=== PATIENT | female | born 1955 | race Caucasian/White ===

== ENCOUNTER 2019-10-17 14:58 | Inpatient (IN) | payer MEDICARE ==
[~2019-10-17] VITALS: Ht 167.6 cm; Wt 63.7 kg
[2019-10-17] MEDS ORDERED: normal saline 1000ML IV soln IVB ONE (15:25)
[2019-10-17] MEDS ORDERED: ondansetron/PF 4mg/2ml inj IV ONE ×2 (15:25→16:45)
[2019-10-17] MEDS ORDERED: ketorolac trometh. 30mg/ml inj. IV ONE (15:25)
[2019-10-17 15:31] LABS: BASOPHILS % (AUTO) 0.6 % (0-1); EOSINOPHILS # (AUTO) 0.1 X10'3 (0-0.9); EOSINOPHILS % (AUTO) 1.4 % (0-6); HEMATOCRIT 40.5 % (35.0-45.0); HEMOGLOBIN 13.9 g/dl (12.0-16.0); LYMPHOCYTES # (AUTO) 1.4 X10'3 (1.1-4.8); LYMPHOCYTES % (AUTO) 21.2 % (21-51); MEAN CORPUSCULAR HEMOGLOBIN 30.3 PG (27.0-31.0); MEAN CORPUSCULAR HGB CONC 34.4 g/dL (33.0-36.5); MEAN CORPUSCULAR VOLUME 88.2 FL (78-98); MEAN PLATELET VOLUME 7.6 FL (7.4-10.4); MONOCYTES # (AUTO) 0.6 X10'3 (0-0.9); MONOCYTES % (AUTO) 8.4 % (2-12); NEUTROPHILS # (AUTO) 4.7 X10'3 (1.8-7.7); NEUTROPHILS % (AUTO) 68.4 % (42-75); PLATELET COUNT 253 X10'3 (140-440); RED CELL DISTRIBUTION WIDTH 13.2 % (11.5-14.5); WHITE BLOOD COUNT 6.8 X10'3 (4.5-11.0)
[2019-10-17 15:49] LABS: ALANINE AMINOTRANSFERASE 873 U/L (12-78); ALBUMIN 3.8 G/DL (3.4-5.0); ALBUMIN/GLOBULIN RATIO 1.2 (1.1-1.5); ALKALINE PHOSPHATASE 136 IU/L (46-116); ANION GAP 9 (8-16); ASPARTATE AMINO TRANSFERASE 957 U/L (10-37); BILIRUBIN,TOTAL 1.1 MG/DL (0.1-1.0); BLOOD UREA NITROGEN 15 MG/DL (7-18); BUN/CREATININE RATIO 16.5 (6.6-38.0); CALCIUM 8.7 MG/DL (8.5-10.1); CHLORIDE 104 MMOL/L (99-107); CREATININE 0.91 MG/DL (0.40-0.90); GLUCOSE 109 MG/DL (70-104); POTASSIUM 3.6 MMOL/L (3.5-5.1); SODIUM 137 MMOL/L (135-145); TOTAL CARBON DIOXIDE 23.9 MMOL/L (24-32); TOTAL PROTEIN 7.1 G/DL (6.4-8.2); eGFR 62 ML/MIN
[2019-10-17 16:04] LABS: LIPASE 13983 U/L (73-393)
[2019-10-17 16:10] LABS: CLARITY,URINE SLIGHTLY CLOUDY (Clear); COLOR,URINE YELLOW (Yellow); GLUCOSE, URINE NEGATIVE (Neg); KETONES,URINE NEGATIVE (Neg); LEUKOCYTE ESTERASE ,URINE SMALL (Neg); NITRITES, URINE NEGATIVE (Neg); OCCULT BLOOD,URINE NEGATIVE (Neg); PROTEIN,URINE NEGATIVE (Neg)
[2019-10-17 16:11] LABS: UA COLLECTION TYPE CLN CATCH MIDSTREAM
[2019-10-17 16:16] LABS: BACTERIA,URINE FEW /HPF (Neg); MUCUS STRANDS FEW /LPF (Neg); RBC,URINE 0-2 /HPF (0-2); SQUAMOUS EPITHELIAL CELL,UR MODERATE /LPF (FEW)
[2019-10-17 16:17] LABS: RENAL CELLS, URINE FEW /HPF
[2019-10-17] MEDS ORDERED: CefTRIAXone 2gm/D5W 50ml 50 ML IV ONE (16:25)
[2019-10-17] MEDS ORDERED: CefTRIAXone inj 2,000 MG in normal saline 100ml IV soln 100 ML IV ONE (16:26)
[2019-10-17] MEDS ORDERED: morphine 4 MG/ML inj SYRINge IV PRN (16:45)
[2019-10-17] MEDS ORDERED: BUPR150T8 PO (16:49)
[2019-10-17] MEDS ORDERED: ALPR0.5T8 PO (16:49)
[2019-10-17] MEDS ORDERED: ZOLP10TA PO (16:49)
[2019-10-17] MEDS ORDERED: MELA10TA PO (16:49)
[2019-10-17] MEDS ORDERED: EZET10TA6 PO (16:49)
[2019-10-17] MEDS ORDERED: OMEP20TA23 PO (16:49)
[2019-10-17] MEDS ORDERED: magnesium hydroxide 30ml (MOM) UD suspension PO PRN (17:10)
[2019-10-17] MEDS ORDERED: HYDROmorphone 1 mg/ml syringe IV PRN (17:10)
[2019-10-17] MEDS ORDERED: acetaminophen 325mg tablet PO PRN (17:10)
[2019-10-17] MEDS ORDERED: mag hydrox/Alum hydrox/simeth 30ml oral suspension PO PRN (17:10)
[2019-10-17] MEDS: normal saline 1000ml 1,000 ML IV SCH (17:29)
--- NOTE | 2019-10-17 18:30 | NUR ---
Patient in room ED 10. I have received report from Janice LEON and had the opportunity to ask questions and assume patient care.
[2019-10-17 18:35] VITALS: BP 139/87
[2019-10-17] MEDS ORDERED: [UNRECOGNIZED DRUG - OTHER] (18:54)
[2019-10-17 19:35] VITALS: BP 139/87
[2019-10-17] MEDS: ezetimibe 10mg tablet PO SCH (21:27)
[2019-10-17] MEDS: Melatonin 3mg tablet PO SCH (21:28)
[2019-10-17] MEDS: ALPRAZolam 0.5mg tablet PO PRN (21:29)
[2019-10-17] MEDS: zolpidem 5mg tablet PO PRN (21:29)
[2019-10-17 22:00] VITALS: BP 118/67
[2019-10-18] VITALS (21 sets, daily range): BP systolic 107–136; BP diastolic 50–69
[2019-10-18] MEDS: normal saline 1000ml 1,000 ML IV SCH ×4 (00:55→19:46)
[2019-10-18] MEDS: ondansetron/PF 4mg/2ml inj IV PRN ×2 (01:41→06:50)
[2019-10-18] MEDS: HYDROmorphone inj. 0.5 MG/0.5 ML DISP.SYRIN IV PRN ×2 (02:04→06:51)
[2019-10-18 05:25] LABS: BASOPHILS % (AUTO) 0.7 % (0-1); EOSINOPHILS # (AUTO) 0.2 X10'3 (0-0.9); EOSINOPHILS % (AUTO) 2.6 % (0-6); HEMATOCRIT 36.9 % (35.0-45.0); HEMOGLOBIN 12.3 g/dl (12.0-16.0); LYMPHOCYTES # (AUTO) 1.7 X10'3 (1.1-4.8); LYMPHOCYTES % (AUTO) 25.5 % (21-51); MEAN CORPUSCULAR HEMOGLOBIN 30.1 PG (27.0-31.0); MEAN CORPUSCULAR HGB CONC 33.5 g/dL (33.0-36.5); MONOCYTES # (AUTO) 0.5 X10'3 (0-0.9); MONOCYTES % (AUTO) 6.9 % (2-12); NEUTROPHILS # (AUTO) 4.3 X10'3 (1.8-7.7); NEUTROPHILS % (AUTO) 64.3 % (42-75); PLATELET COUNT 224 X10'3 (140-440); RED CELL DISTRIBUTION WIDTH 13.8 % (11.5-14.5); WHITE BLOOD COUNT 6.7 X10'3 (4.5-11.0)
[2019-10-18 05:45] LABS: ALANINE AMINOTRANSFERASE 555 U/L (12-78); ALBUMIN 3.1 G/DL (3.4-5.0); ALBUMIN/GLOBULIN RATIO 1.1 (1.1-1.5); ALKALINE PHOSPHATASE 108 IU/L (46-116); ANION GAP 9 (8-16); ASPARTATE AMINO TRANSFERASE 368 U/L (10-37); BILIRUBIN,TOTAL 0.5 MG/DL (0.1-1.0); BLOOD UREA NITROGEN 10 MG/DL (7-18); BUN/CREATININE RATIO 13.5 (6.6-38.0); CALCIUM 7.6 MG/DL (8.5-10.1); CHLORIDE 110 MMOL/L (99-107); CREATININE 0.74 MG/DL (0.40-0.90); GLUCOSE 93 MG/DL (70-104); POTASSIUM 3.8 MMOL/L (3.5-5.1); SODIUM 142 MMOL/L (135-145); TOTAL CARBON DIOXIDE 23.3 MMOL/L (24-32); eGFR 79 ML/MIN
--- NOTE | 2019-10-18 06:32 | NUR ---
Problems reprioritized. Patient report given, questions answered & plan of care reviewed with Liya LEON.
[2019-10-18] MEDS: buPROPion SR 150mg tablet PO SCH ×2 (08:00→09:02)
[2019-10-18] MEDS: CefTRIAXone/D5W-Rocephin 1gm 50 ML IV SCH (08:14)
[2019-10-18] MEDS: pantoprazole 40mg Tablet.DR PO SCH (09:02)
[2019-10-18 10:17] LABS: LIPASE 2078 U/L (73-393)
[2019-10-18] MEDS ORDERED: INDOCYANINE GREEN 25 MG/10 ML VIAL IV ONE (11:45)
[2019-10-18] MEDS ORDERED: ringers solution, lacted 1,000 ML IV SCH (11:49)
[2019-10-18] MEDS ORDERED: ringers solution, lacted 1,000 ML IV ONE (11:49)
[2019-10-18] MEDS ORDERED: morphine 2 MG/ML inj. syringe IV PRN (11:50)
[2019-10-18] MEDS ORDERED: proMETHazine 25mg rectal suppository RC ONE (11:50)
[2019-10-18] MEDS ORDERED: labetalol 20mg/4ml (5mg/ml) syringe IV PRN (11:50)
[2019-10-18] MEDS ORDERED: hydrALAZINE 20mg/ml inj. IV PRN (11:50)
[2019-10-18] MEDS ORDERED: ondansetron/PF 4mg/2ml inj IV PRN (11:50)
[2019-10-18] MEDS ORDERED: fentaNYL/PF 50MCG/1 ML 2ML syringe IV PRN ×2 (11:50)
[2019-10-18] MEDS ORDERED: morphine 4 MG/ML inj SYRINge IV PRN (11:50)
[2019-10-18] MEDS ORDERED: BUPIVAcaine/PF 2.5 mg/ml (0.25%) 30ml vial ONE ×2 (12:23→13:16)
[2019-10-18] MEDS ORDERED: LIDOcaine 1% 30ml preserv. free vial ONE (12:23)
[2019-10-18] MEDS ORDERED: midazolam 2 mg/2 ml injection ONE (13:57)
[2019-10-18] MEDS ORDERED: fentaNYL/PF 50MCG/1 ML 2ML syringe ONE (13:57)
[2019-10-18] MEDS ORDERED: propofol inj 20 ML IV ONE ×2 (14:06)
[2019-10-18] MEDS ORDERED: acetaminophen 1,000mg/100ml IV 100 ML IV ONE (14:06)
[2019-10-18] MEDS ORDERED: LIDOcaine 2% (20mg/ml) 5ml vial ONE (14:07)
[2019-10-18] MEDS ORDERED: neostigmine methylsulfate 1 MG/ML 10ml vial ONE (14:08)
[2019-10-18] MEDS ORDERED: dexamethasone sod phosphate 4mg/ml inj. ONE (14:08)
[2019-10-18] MEDS ORDERED: ondansetron/PF 4mg/2ml inj ONE (14:08)
[2019-10-18] MEDS ORDERED: glycopyrrolate 0.2mg/ml inj ONE (14:08)
[2019-10-18] MEDS ORDERED: ketorolac trometh. 30mg/ml inj. ONE (14:11)
--- NOTE | 2019-10-18 14:20 | NUR ---
Problems reprioritized. Patient report given, questions answered & plan of care reviewed with Tamia LEON .
--- NOTE | 2019-10-18 14:26 | NUR ---
Patient in room [facility]. I have received report from EDWARD TORRES FROM PCU and had the opportunity to ask questions and assume patient care.
--- NOTE | 2019-10-18 15:17 | NUR ---
Received from OR via SURGICAL BED , accompanied by Anesthesiologist DR FIGUEROA and report given by Anesthesiolgist. PT PLACED ON O2 AND MONITOR, S/P RA AILYN ZAFAR, GENERAL ANESTH., PT HAS 4 LARGE BANDAIDS TO ABD ALL CDI, ABD SOFT, DENIES ANY PAIN OR NAUSEA AT THIS TIME.
--- NOTE | 2019-10-18 16:06 | NUR ---
Patient in room [facility]. I have received report from EDWARD MARTIN FROM [facility] and had the opportunity to ask questions and assume patient care.
--- NOTE | 2019-10-18 16:17 | NUR ---
Report called to receiving nurse. Transferred via SURGICAL BED TO ROOM 344A Belongings . Special Issues communicated to receiving nurse.
--- NOTE | 2019-10-18 16:30 | NUR ---
Problems reprioritized. Patient report given, questions answered & plan of care reviewed with EDWARD WITT.
[2019-10-18] MEDS: ibuprofen tablet 400 MG TABLET PO SCH (16:47)
[2019-10-18] MEDS: lactobacillus rhamnosus 10,000 MMU CELLS/CAPSULE PO SCH (20:55)
[2019-10-18] MEDS: acetaminophen 325mg tablet PO SCH (20:55)
[2019-10-18] MEDS: ezetimibe 10mg tablet PO SCH (20:56)
[2019-10-18] MEDS: Melatonin 3mg tablet PO SCH (21:00)
[2019-10-18] MEDS: ALPRAZolam 0.5mg tablet PO PRN (21:55)
[2019-10-19] MEDS: zolpidem 5mg tablet PO PRN (00:50)
[2019-10-19] MEDS: acetaminophen 325mg tablet PO SCH ×2 (02:00→08:08)
[2019-10-19] MEDS: normal saline 1000ml 1,000 ML IV SCH ×2 (04:10→09:06)
[2019-10-19 05:06] LABS: BASOPHILS % (AUTO) 0.1 % (0-1); EOSINOPHILS % (AUTO) 0 % (0-6); HEMATOCRIT 32.5 % (35.0-45.0); HEMOGLOBIN 11.2 g/dl (12.0-16.0); LYMPHOCYTES % (AUTO) 11.1 % (21-51); MEAN CORPUSCULAR HEMOGLOBIN 30.6 PG (27.0-31.0); MEAN CORPUSCULAR HGB CONC 34.3 g/dL (33.0-36.5); MEAN CORPUSCULAR VOLUME 89.2 FL (78-98); MEAN PLATELET VOLUME 7.9 FL (7.4-10.4); MONOCYTES # (AUTO) 0.5 X10'3 (0-0.9); MONOCYTES % (AUTO) 5.8 % (2-12); NEUTROPHILS # (AUTO) 7.4 X10'3 (1.8-7.7); PLATELET COUNT 228 X10'3 (140-440); RED BLOOD COUNT 3.65 X10'6 (4.20-5.60); RED CELL DISTRIBUTION WIDTH 13.4 % (11.5-14.5); WHITE BLOOD COUNT 8.9 X10'3 (4.5-11.0)
[2019-10-19 05:16] LABS: ALANINE AMINOTRANSFERASE 362 U/L (12-78); ALKALINE PHOSPHATASE 89 IU/L (46-116); ANION GAP 8 (8-16); ASPARTATE AMINO TRANSFERASE 130 U/L (10-37); BILIRUBIN,TOTAL 0.4 MG/DL (0.1-1.0); BLOOD UREA NITROGEN 6 MG/DL (7-18); BUN/CREATININE RATIO 7.1 (6.6-38.0); CALCIUM 7.9 MG/DL (8.5-10.1); CHLORIDE 111 MMOL/L (99-107); CREATININE 0.84 MG/DL (0.40-0.90); GLUCOSE 127 MG/DL (70-104); LIPASE 90 U/L (73-393); SODIUM 143 MMOL/L (135-145); TOTAL CARBON DIOXIDE 23.7 MMOL/L (24-32); TOTAL PROTEIN 5.9 G/DL (6.4-8.2); eGFR 68 ML/MIN
[2019-10-19] MEDS ORDERED: famotidine 20mg tablet PO ONE (06:00)
--- NOTE | 2019-10-19 06:59 | NUR ---
Patient in room [facility]. I have received report from Divya LEON and had the opportunity to ask questions and assume patient care.
[2019-10-19 07:00] VITALS: BP 122/47
[2019-10-19] MEDS: pantoprazole 40mg Tablet.DR PO SCH (08:04)
[2019-10-19] MEDS: CefTRIAXone/D5W-Rocephin 1gm 50 ML IV SCH (08:05)
[2019-10-19] MEDS: lactobacillus rhamnosus 10,000 MMU CELLS/CAPSULE PO SCH (08:05)
[2019-10-19] MEDS: buPROPion SR 150mg tablet PO SCH (08:05)
[2019-10-19] MEDS: ibuprofen tablet 400 MG TABLET PO SCH (08:08)
--- NOTE | 2019-10-19 13:35 | NUR ---
Pt DC to home. Pt is A & O x4, in no apparent distress. Pt verbalizes understanding of all DC orders and understands the importance of following up with Dr arzate. Pt packed all of her items, and carried them out. Pt wheeled out to the front where met her to take her home.
== END 2019-10-19 13:19 | disposition home or self-care (01) | DRG 417 ==
LOC: ER 15:02 → ED HOLD 17:06 → EDBEDREQ 18:24 → PCU 3S 18:52 → SUR 3N 10-18 14:03
PROVIDERS: ADMIT Family Medicine; ATTEND Family Medicine
PROC: 8E0W4CZ Robotic Assisted Procedure of Trunk Region, Percutaneous Endoscopic Approach (ICD-10-PCS; 2019-10-18)
PROC: BF121ZZ Fluoroscopy of Gallbladder using Low Osmolar Contrast (ICD-10-PCS; 2019-10-18)
PROC: 0FT44ZZ Resection of Gallbladder, Percutaneous Endoscopic Approach (ICD-10-PCS; principal; 2019-10-18 13:53)
DX: K80.00 Calculus of gallbladder with acute cholecystitis without obstruction (principal); K85.10 Biliary acute pancreatitis without necrosis or infection; E78.5 Hyperlipidemia, unspecified; F41.9 Anxiety disorder, unspecified; R74.0 Nonspecific elevation of levels of transaminase and lactic acid dehydrogenase [LDH]; G47.9 Sleep disorder, unspecified; K21.9 Gastro-esophageal reflux disease without esophagitis; R79.89 Other specified abnormal findings of blood chemistry; Z79.899 Other long term (current) drug therapy
CPT/HCPCS: 36415; 74181; 76700; 80053; 81001; 83690; 85025; 87081; 87088; 96361; 96365; 96375; 99285; A4215; A4618; A7000; G0378; J0131; J0696; J1100; J1170; J1885; J2001; J2250; J2405; J2704; J2710; J3010; J3490; J7030; J7120